=== PATIENT | female | born 1950 | race Caucasian/White ===

== ENCOUNTER → 2017-01-05 | Day surgery (SDC) | payer OTHER, BC ==
--- NOTE | 2017-01-06 16:35 | PATH ---
Surgical Pathology Report Patient Name: TD ALVES [facility]. Rec. #: [id number] /Age/Gender: 1950 (Age: 66) / F Account: [id number] Location: Taken: 01/05/2017 Received: 01/05/2017 Reported: 01/06/2017 Physicians: Saeed Roque M.D. Specimen(s) Received BREAST CORE BIOPSY RIGHT 10:00 [id number] Clinical History Ultrasound findings: Suspicious Final Diagnosis BREAST, RIGHT, 10:00, 5 CM FN, CORE BIOPSY: BENIGN BREAST TISSUE SHOWING PROLIFERATIVE FIBROCYSTIC CHANGES INCLUDING CYSTIC APOCRINE METAPLASIA, USUAL AND PAPILLARY DUCTAL HYPERPLASIA AND STROMAL FIBROSIS. Electronically Signed Leigh Ann Montoya M.D. Gross Description Received in formalin labeled "right breast bx 10:00, 5 cmfn," is a 1.2 x 0.8 x 0.2 cm aggregate of multiple gramajo-yellow, irregular to cylindrical fragments of fibroadipose tissue. The formalin is filtered and the specimen is entirely submitted in one cassette. Time to formalin fixation: 2 minutes Total formalin fixation time: Approximately 6 hours formerly [facility]/01/05/2017
== END | disposition home or self-care (01) ==
LOC: FRADUS-SUR 10:54
PROVIDERS: ATTEND Surgery Surgical Oncology
PROC: 0HBT3ZX Excision of Right Breast, Percutaneous Approach, Diagnostic (ICD-10-PCS; principal; 2017-01-05)
DX: N60.11 Diffuse cystic mastopathy of right breast (principal); N60.31 Fibrosclerosis of right breast; N63.13 Unspecified lump in the right breast, lower outer quadrant
CPT/HCPCS: 19083; 87899; 88305-TC; A4648; G0206-TC